=== PATIENT | male | born 1970 ===

== ENCOUNTER → 2023-02-23 | Day surgery (SDC) | payer OTHER | END | disposition home or self-care (01) | LOC: ADM 02-17 11:45 → CIR.AMB 06:10 | PROVIDERS: ATTEND Colon & Rectal Surgery | DX: K64.2 Third degree hemorrhoids (principal); Z53.8 Procedure and treatment not carried out for other reasons ==

== ENCOUNTER 2023-03-09 06:08 | Day surgery (SDC) | payer OTHER | END 2023-03-09 18:00 | disposition home or self-care (01) | LOC: CIR.AMB 06:08 | PROVIDERS: ATTEND Colon & Rectal Surgery | DX: K64.2 Third degree hemorrhoids (principal); K64.8 Other hemorrhoids; K64.4 Residual hemorrhoidal skin tags; Z88.0 Allergy status to penicillin; Z20.822 Contact with and (suspected) exposure to COVID-19 ==